=== PATIENT | male | born 1935 | race Caucasian/White ===

== ENCOUNTER 2017-02-12 15:33 | Inpatient (IN) | payer MEDICARE ==
--- NOTE | ~2017-02-12 | CN ---
Consultation Report [facility] [address] [place]. [address] NAME: ZOE CONWAY : 37 STATUS : ADM IN [facility]#: [id number] AGE: 81 ADM/REG DATE : 02/12/17 MR#: [id number] REPORT SERV DATE: 02/14/17 DICTATED BY: DATE: REPORT STATUS : Draft TRANSCRIBED BY: MODL DATE: 02/14/17 CONSULTATION DATE OF CONSULTATION: 02/14/2017 REASON FOR CONSULTATION: Back pain. HISTORY OF PRESENT ILLNESS: The patient was admitted on 02/12/2017 with chest pain and elevated troponins. We are consulted because he is having persistent sharp upper left-sided back pain. His troponins have been elevated and have remained unchanged likely due to his chronic systolic heart failure according to Dr. Waddell. After physical exam, it was found that the patient is very tender to palpation and his trapezius muscle was very tight. I believe, his pain is likely due to muscle spasms, so I started cyclobenzaprine and see if that helps. As mentioned above, the pain is constant and is radiating around the trapezius muscle to the front left chest and is sharp in nature and has been persistent in the last two days. PAST MEDICAL HISTORY: Includes coronary artery disease, borderline diabetes mellitus, chronic kidney disease stage 3, rheumatoid arthritis, systolic heart failure, ejection fraction is 20%, CVA, squamous cell carcinoma of the skin, chronic leukopenia, as well as LGL leukemia. PAST SURGICAL HISTORY: Includes CABG x2, AICD placement, multiple cardiac stents, and aortic valve replacement. FAMILY HISTORY: Mother had CAD. Father had rheumatoid arthritis. SOCIAL HISTORY: The patient denies tobacco, alcohol, illicit drug use. The patient is a retired [employer] and lives at home with his . HOME MEDICATIONS: Include aspirin 81 mg p.o. daily, atorvastatin 80 mg p.o. at hour of sleep, carvedilol 3.125 mg p.o. b.i.d., Plavix 75 mg p.o. daily, fluoxetine 10 mg p.o. at hour of sleep, folic acid 1 mg p.o. daily, furosemide 40 mg IV q.8, heparin 5000 units subcu q.8, latanoprost ophthalmic at hour of sleep, magnesium 400 mg p.o. b.i.d., multivitamin one tablet p.o. daily, pentoxifylline 400 mg p.o. b.i.d., spironolactone 25 mg p.o. daily, tamsulosin 0.4 mg p.o. daily, 400 units p.o. daily, prednisone 10 mg p.o. daily. ALLERGIES: INCLUDE MORPHINE AND CODEINE. PHYSICAL EXAMINATION: GENERAL: The patient is alert and oriented, follows commands. NEUROLOGIC: Cranial nerves 2 through 12 are grossly intact. Alert and oriented x4. CHEST: Heart tones are irregularly irregular. Systolic murmur noted, 12/16. Consultation Report [place] [id number] [facility] [place]. [address] NAME: ZOE CONWAY : 37 STATUS : ADM IN [facility]#: [id number] AGE: 81 ADM/REG DATE : 02/12/17 MR#: [id number] REPORT SERV DATE: 02/14/17 DICTATED BY: DATE: REPORT STATUS : Draft TRANSCRIBED BY: MODL DATE: 02/14/17 LUNGS: Lungs are clear throughout lung reyes. No shortness of breath was noted. The patient is on room air and O2 saturation of 95%. ABDOMEN: Soft. Bowel sounds are present. No tenderness was noted or organomegaly. EXTREMITIES: Multiple ecchymosis on his arms bilaterally. 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 LABORATORY DATA: Include sodium 139, potassium 4.0, chloride 102, CO2 25, BUN 58, creatinine 1.66, GFR 38, glucose 188, calcium 8.2, white blood cell count 3.3, hemoglobin 11.3, hematocrit 35.2, platelets 134. Last troponin 2.83 up from 2.46. BNP 1034.7. UA was negative. ASSESSMENT AND PLAN: 1. Back pain, likely muscle spasms of the left trapezius. I will start the patient on cyclobenzaprine to see if this helps. 2. Chronic kidney disease stage 3. Being managed by primary team. 3. Systolic heart failure with an ejection fraction of 20%. Again managed by the primary team. Elevated troponin. 4. Being managed by the primary team. We will follow along and manage the patient's back pain. Thank you very much for the consultation. OBIE/ELLI Heath May NP / [id number] CC: Casey Henderson D.O. Hany A. Naggar, MD
--- NOTE | ~2017-02-12 | DS ---
Discharge Summary [facility] [address] [place]. [address] NAME: ZOE CONWAY : 37 STATUS : DIS IN PAT#: [id number] AGE: 81 ADM/REG DATE : 02/12/17 MR#: [id number] REPORT SERV DATE: 02/21/17 DICTATED BY: SAE CLINE DATE: 02/20/17 REPORT STATUS : Draft TRANSCRIBED BY: ELLI DATE: 02/20/17 Data Collection from hospitalization DISCHARGE DIAGNOSES: CONSULTATIONS: Heath Mya NP. PROCEDURES PERFORMED: None. DISPOSITION: [facility]. HOSPITAL COURSE: This 81-year-old male had multiple medical problems. He had known coronary artery disease and ischemic cardiomyopathy with an LVEF in the 20% range. He and his family reported progressive worsening dyspnea and weakness over the past several weeks so that he had a hard time walking more than 15 feet. He had some increasing lower extremity edema and some left shoulder pain. He had squamous cell carcinoma on his left shoulder and was scheduled for surgery. His left shoulder pain was somewhat concerning; it was not necessarily exertional and persistent over several days. He denied any fever or chills. He denied nausea, but did report significant weakness. He had no lightheadedness or syncope. He was admitted for further evaluation and treatment. Upon admission to the hospital, he had been placed on heart failure admission orders. He was placed in a monitored bed. He was begun on bronchodilators per protocol. He had also been placed on a 2-g sodium, 1500 mL per day fluid restriction cardiac diet. He was begun on Lasix at 40 mg IV every 8 hours, heparin 5000 units subcutaneously every 8 hours, Zofran 4 to 8 mg IV every 4 hours as needed, hydrocodone 5 mg one every 4 hours as needed, melatonin 3 mg at bedtime as needed for insomnia, Colace 100 mg twice daily as needed. Following the day of admission, he was afebrile and his vital signs were stable. He had no complaints of chest pain or shortness of breath. His chest x-ray had revealed vascular congestion as well as interstitial edema and bilateral effusions. It was felt that the small elevation in the troponin could be secondary to his congestive heart failure. He was continued on diuresis with IV Lasix. On 02/14/2017, his main complaint was back pain. He had no complaints of chest pain or shortness of breath. He was afebrile and his vital signs had remained stable. He had been changed to oral Bumex. He was also seen on 02/14/2017 by Heath May in regard to his back pain, which he felt was likely muscle spasms of the left trapezius. He placed the patient on cyclobenzaprine to see if this would help. On 02/15/2017, the patient was noted to be sedated with Haldol and Geodon, and Heath May was unable to evaluate him secondary to sedation and he was to be monitored throughout the day. He was noted to become agitated and combative after Flexeril was given, and therefore, received the Geodon and Haldol as well as some Dilaudid. On 02/15/2017, at 2305 hours, Dr. Devonte Moreno had responded to code blue and ACLS protocol was initiated. He had failed to respond and a code was called, and the patient had been pronounced at . He was then released to the above home. Information collected by: Geovanna BeltreI.T. I submit the above information as my discharge summary. Discharge Summary [address] [address] NAME: ZOE CONWAY : 37 STATUS : DIS IN [facility]#: [id number] AGE: 81 ADM/REG DATE : 02/12/17 MR#: [id number] REPORT SERV DATE: 02/21/17 DICTATED BY: SAE CLINE DATE: 02/20/17 REPORT STATUS : Draft TRANSCRIBED BY: ELLI DATE: 02/20/17 RW/ELLI Sae Cline M.D. / [id number] CC: Casey Henderson D.O.
--- NOTE | ~2017-02-12 | HP ---
History And Physical [place] [address] [place]. [address] NAME: ZOE CONWAY : 37 STATUS : ADM IN [facility]#: [id number] AGE: 81 ADM/REG DATE : 02/12/17 MR#: [id number] REPORT SERV DATE: 02/13/17 DICTATED BY: JM OSPINA DATE: 02/12/17 REPORT STATUS : Draft TRANSCRIBED BY: MODL DATE: 02/12/17 DATE OF ADMISSION: 02/12/2017 CHIEF COMPLAINT: Weakness, left shoulder pain, exertional dyspnea, and ER report of elevated troponin. HISTORY OF PRESENT ILLNESS: Mr. Conway is an 81-year-old man with multiple medical problems. He has known coronary artery disease and ischemic cardiomyopathy with an LVEF in the 20% range. He and his family reports progressive worsening dyspnea and weakness over the past several weeks so that he has hard time walking more than 15 feet. He has some increasing lower extremity edema and some left shoulder pain. He has a squamous cell carcinoma on his left shoulder and was scheduled for surgery. His left shoulder pain is somewhat concerning, it is not necessarily exertional and persistent over several days. He denies fevers or chills. He denies nausea, but does report significant weakness. He has had no lightheadedness and no syncope. REVIEW OF SYSTEMS: As per the history of present illness. Ten other systems are negative. PAST MEDICAL HISTORY: 1. Coronary artery disease, previous bypass surgery, arteriogram in with severe disease of the LAD and circumflex, 10% RCA with patent LOZOYA to the LAD, patent vein graft to the D1 mild degenerative changes on the vein graft to the right. Echocardiogram with EF of 20%. 2. Diabetes. 3. Chronic kidney disease. 4. Rheumatoid arthritis. 5. Some form of chronically low white blood cell count, on chronic immunosuppression and methotrexate. FAMILY HISTORY: Noncontributory. SOCIAL HISTORY: The patient is . No tobacco reported. ALLERGIES: MORPHINE. HOME MEDICATIONS: Aspirin 81 daily, atorvastatin 80 q.h.s., Coreg 3.125 mg p.o. b.i.d., Plavix 75 daily, Prozac 10 daily, folic acid one daily, Lasix 40 p.r.n., Xalatan, losartan 25 daily, magnesium oxide, methotrexate as directed, multivitamin, nitroglycerin, fish oil, Trental, potassium 10 p.r.n. out of 10 as directed, prednisone 10 daily, spironolactone 25 daily, Flomax, vitamin E, Anusol, PreserVision. PHYSICAL EXAMINATION: VITAL SIGNS: The patient is afebrile. Temperature is 98.6, heart rate 100, blood pressure 119/60. GENERAL: The patient is an elderly, chronically ill-appearing white male, in no apparent History And Physical [address] [address] NAME: ZOE CONWAY : 37 STATUS : ADM IN [facility]#: [id number] AGE: 81 ADM/REG DATE : 02/12/17 MR#: [id number] REPORT SERV DATE: 02/13/17 DICTATED BY: JM OSPINA DATE: 02/12/17 REPORT STATUS : Draft TRANSCRIBED BY: ELLI DATE: 02/12/17 distress. HEENT: Conjunctivae are anicteric, no xanthelasma, lips without cyanosis. NECK: Supple. Jugular venous pressure is mildly elevated. LUNGS: Decreased breath sounds in the bases. CARDIOVASCULAR: Regular rate and rhythm. 2/6 systolic murmur. ABDOMEN: Soft, nontender, nondistended. EXTREMITIES: Mild lower extremity edema bilaterally. NEURO/PSYCH: Alert and oriented to person, place and time. No obvious neurologic deficits. Mood and affect normal. DATA: Electrocardiogram shows AV paced rhythm. LABORATORY DATA: Significant for creatinine of 1.38 with a BUN of 52. BNP level is 1271. Troponin 2.46. Hematocrit 36. IMPRESSION: 1. Acute on chronic systolic congestive heart failure. Generalized weakness of unclear etiology. 1. Chronic immunosuppression. 2. Probable demand ischemia. Mildly elevated troponin. Doubt back pain has anything to do with angina. 3. Chronic kidney disease. RECOMMENDATIONS: Mr. Conway presents with a number of generalized symptoms, mostly weakness with some back pain. His troponin is elevated. I see no acute changes on his EKG. I think we just follow some serial enzymes and treat him medically. WO/MODL Jm Ospina M.D., Ph.D, F.A.C.C. / [id number] CC: Casey Henderson D.O.
[~2017-02-12 15:33] MED LIST: ACET500CAP PO; ANUSOL-HC2.5 % PR; ASAB PO; ASABAYER PO; ASAEC PO; AVAP150 PO; BUM2 PO; COREG25 PO; COREG3 PO; COZ25 PO; COZAAR100 MG PO; FISH-EPA1000 MG PO; FLOMAX4 PO; FLONASE NAS; FOLIC ACID PO; FOLIC PO; FORTAMET500 MG PO; GLUCPH PO; HALF81 PO; HCTZ25B PO; K500 PO; KDUR20 PO; KLOR-CON 1010 MEQ PO; L20 PO; L40 PO; LEVAQUIN750 MG PO; LIPITOR40 PO; LIPITOR80 MG PO; LOFIB160 PO; LOFIBRA160 MG PO; MAGOX4 PO; MTX2.5 PO; MULTIVIT/MIN PO; MVI PO; NIASPAN500 PO; NITROSTAT0.4 MG SL; NORCO1 TA1 PO; NORV5 PO; OMNICEF300 PO; P10 PO; P20 PO; P5 PO; PLAQ200B PO; PLAVIX PO; PRESERVISION A1 EACH PO; PRESERVISION PO; PROVHFA INH; PROZ10 PO; SPIRO25 PO; TRENTAL400 PO; TREXALL7.5 MG PO; TRILIPIX135 MG PO; VITE PO; VOLTAREN1 % TOP; XALAT OPH; ZETIA PO; [UNRECOGNIZED DRUG - OTHER]; [UNRECOGNIZED DRUG - REMARK] IV
[2017-02-12 15:51] LABS: BASOPHILS 0.7 %; BASOPHILS ABSOLUTE 0.03 10/3/uL (0.0-0.16); EOSINOPHILS ABSOLUTE 0.04 10/3/uL (0.0-0.53); IMMATURE GRANULOCYTES 0.5 %; IMMATURE GRANULOCYTES ABSOLUTE 0.02 10/3/uL (0.0-0.11); LYMPHOCYTES 8.3 %; LYMPHOCYTES ABSOLUTE 0.34 10/3/uL (0.67-4.30); MEAN CORPUS HGB CONC 32.8 g/dL (32.0-36.0); MEAN CORPUSCULAR HEMOGLOB 28.4 pg (26.0-34.0); MEAN CORPUSCULAR VOLUME 86.7 fL (80-100); MEAN PLATELET VOLUME 9.4 fL (9.2-13.0); MONOCYTES ABSOLUTE 0.29 10/3/uL (0.21-1.20); NEUTROPHILS 82.5 %; RBC DISTRIBUTION WIDTH 18.1 % (12.0-16.0); RED CELL COUNT 4.15 10/6/uL (4.7-6.1)
[2017-02-12 15:52] LABS: ER CBC TAT 0 Hrs 05 Mins; HEMOGLOBIN 11.8 g/dL (13.6-17.8); MANUAL DIFF NO %; PLATELET COUNT 155 10/3/uL (150-400); WHITE BLOOD CELLS 4.1 10/3/uL (4.5-10.5)
[2017-02-12 16:01] LABS: INTERNATIONAL NORMAL RATI 1.2 UNITS (-); PARTIAL THROMBO TIME 29.2 SEC (22.5-37.2); PROTIME (NOT ORD) 14.9 SEC (12.0-14.5)
[2017-02-12 16:08] LABS: BUN (BLOOD UREA NITROGEN) 52 MG/DL (6-23); CALCIUM, SERUM 8.9 MG/DL (8.5-10.4); CHLORIDE, SERUM 104 MMOL/L (96-112); CO2 (CARBON DIOXIDE) 26 MMOL/L (24-34); CREATININE 1.38 MG/DL (0.70-1.30); GFR AFRICAN AMERICAN 56 ML/MIN (>=60); GFR NON AFRICAN AMERICAN 48 ML/MIN (>=60); GLUCOSE, SERUM 158 MG/DL (60-99); POTASSIUM, SERUM 4.6 MMOL/L (3.5-5.3); SODIUM, SERUM 139 MMOL/L (135-148)
[2017-02-12 16:17] LABS: CHEST PAIN PROFILE TAT 0 Hrs 30 Mins; TROPONIN I 2.46 NG/ML (<0.05)
[2017-02-12] MEDS ORDERED: TREXALL7.5 MG PO (17:47)
[2017-02-12] MEDS ORDERED: TRENTAL400 PO (17:47)
[2017-02-12] MEDS ORDERED: MULTIVIT/MIN PO (17:47)
[2017-02-12] MEDS ORDERED: KLOR-CON 1010 MEQ PO (17:48)
[2017-02-12] MEDS ORDERED: P5 PO (17:50)
[2017-02-12] MEDS ORDERED: SPIRO25 PO (17:50)
[2017-02-12] MEDS ORDERED: FLOMAX4 PO (17:51)
[2017-02-12] MEDS ORDERED: NITROQUICK0.4 MG PO (17:51)
[2017-02-12] MEDS ORDERED: VITE PO (17:51)
[2017-02-12] MEDS ORDERED: PRESERVISION A1 EACH PO (17:52)
[2017-02-12] MEDS ORDERED: NORCO1 TA1 PO (17:52)
[2017-02-12] MEDS ORDERED: FOLIC PO (17:52)
[2017-02-12] MEDS ORDERED: [UNRECOGNIZED DRUG - OTHER] IM (17:52)
[2017-02-12] MEDS ORDERED: ANUSOL HC PR (17:53)
[2017-02-12] MEDS ORDERED: XALAT OPH (17:54)
[2017-02-12] MEDS ORDERED: COZ25 PO (17:54)
[2017-02-12] MEDS ORDERED: MAGOX4 PO (17:55)
[2017-02-12] MEDS ORDERED: L40 PO (17:56)
[2017-02-12] MEDS ORDERED: LIPITOR80 MG PO (17:57)
[2017-02-12] MEDS ORDERED: ASAB PO (17:57)
[2017-02-12] MEDS ORDERED: COREG3 PO (17:58)
[2017-02-12] MEDS ORDERED: PLAVIX PO (17:58)
[2017-02-12] MEDS ORDERED: FISH OIL1200 MG PO (17:58)
[2017-02-12] MEDS ORDERED: PROZ10 PO (17:59)
[2017-02-13 07:34] LABS: ASCORBIC ACID (UR NOT ORDER) NEG (NEG); BILIRUBIN, URINE NEGATIVE (NEG); KETONE, URINE NEGATIVE (NEG); LEUKOCYTE ESTERASE(NOT OR NEG (NEG); WBC (NOT ORDERED) (RFLEX) 1 (0-5)
[2017-02-13 09:36] LABS: BASOPHILS 1.2 %; BASOPHILS ABSOLUTE 0.04 10/3/uL (0.0-0.16); EOSINOPHILS 2.7 %; EOSINOPHILS ABSOLUTE 0.09 10/3/uL (0.0-0.53); HEMATOCRIT 35.2 % (40.0-51.0); HEMOGLOBIN 11.3 g/dL (13.6-17.8); IMMATURE GRANULOCYTES 0.3 %; IMMATURE GRANULOCYTES ABSOLUTE 0.01 10/3/uL (0.0-0.11); LYMPHOCYTES 20.1 %; LYMPHOCYTES ABSOLUTE 0.66 10/3/uL (0.67-4.30); MEAN CORPUS HGB CONC 32.1 g/dL (32.0-36.0); MEAN CORPUSCULAR VOLUME 87.3 fL (80-100); MEAN PLATELET VOLUME 10.5 fL (9.2-13.0); MONOCYTES 13.7 %; MONOCYTES ABSOLUTE 0.45 10/3/uL (0.21-1.20); NEUTROPHILS ABSOLUTE 2.04 10/3/uL (2.02-8.40); PLATELET COUNT 134 10/3/uL (150-400); RBC DISTRIBUTION WIDTH 18.4 % (12.0-16.0); RED CELL COUNT 4.03 10/6/uL (4.7-6.1); WHITE BLOOD CELLS 3.3 10/3/uL (4.5-10.5)
[2017-02-13 09:38] LABS: MANUAL DIFF NO %
[2017-02-13 09:48] LABS: A/G RATIO 0.9 (0.7-1.9); BUN (BLOOD UREA NITROGEN) 51 MG/DL (6-23); CALCIUM, SERUM 8.4 MG/DL (8.5-10.4); CHLORIDE, SERUM 102 MMOL/L (96-112); CO2 (CARBON DIOXIDE) 26 MMOL/L (24-34); CPK 49 U/L (0-200); CREATININE 1.39 MG/DL (0.70-1.30); GFR AFRICAN AMERICAN 55 ML/MIN (>=60); GFR NON AFRICAN AMERICAN 48 ML/MIN (>=60); GLOBULIN 3.5 G/DL (2.5-4.1); GLUCOSE, SERUM 145 MG/DL (60-99); POTASSIUM, SERUM 3.9 MMOL/L (3.5-5.3); SGPT(ALT) 22 U/L (5-65); SODIUM, SERUM 139 MMOL/L (135-148); TOTAL BILIRUBIN 0.7 MG/DL (0-1.2); TOTAL PROTEIN 6.5 G/DL (6.0-8.5)
[2017-02-13 09:49] LABS: ALKALINE PHOSPHATASE 70 U/L (45-117); CK-MB 2.1 NG/ML; SGOT(AST) 21 U/L (5-40)
[2017-02-13 10:00] LABS: INTERNATIONAL NORMAL RATI 1.1 UNITS (-); PROTIME (NOT ORD) 13.6 SEC (12.0-14.5)
[2017-02-13 10:01] LABS: PARTIAL THROMBO TIME 23.5 SEC (22.5-37.2)
[2017-02-13 15:17] LABS: CPK 38 U/L (0-200)
[2017-02-14 05:39] LABS: CALCIUM, SERUM 8.2 MG/DL (8.5-10.4); CHLORIDE, SERUM 102 MMOL/L (96-112); CO2 (CARBON DIOXIDE) 25 MMOL/L (24-34); CREATININE 1.66 MG/DL (0.70-1.30); GFR AFRICAN AMERICAN 44 ML/MIN (>=60); GFR NON AFRICAN AMERICAN 38 ML/MIN (>=60); SODIUM, SERUM 139 MMOL/L (135-148)
[2017-02-14 05:48] LABS: BUN (BLOOD UREA NITROGEN) 58 MG/DL (6-23); GLUCOSE, SERUM 188 MG/DL (60-99)
[2017-02-15 07:00] LABS: CALCIUM, SERUM 8.7 MG/DL (8.5-10.4); CHLORIDE, SERUM 102 MMOL/L (96-112); CREATININE 1.94 MG/DL (0.70-1.30); GFR AFRICAN AMERICAN 37 ML/MIN (>=60); GFR NON AFRICAN AMERICAN 32 ML/MIN (>=60); GLUCOSE, SERUM 178 MG/DL (60-99); SODIUM, SERUM 137 MMOL/L (135-148)
[2017-02-15 07:02] LABS: BUN (BLOOD UREA NITROGEN) 65 MG/DL (6-23); CO2 (CARBON DIOXIDE) 20 MMOL/L (24-34); POTASSIUM, SERUM 5.5 MMOL/L (3.5-5.3)
== END 2017-02-15 23:02 | disposition expired | DRG 291 ==
LOC: CORLMH 15:33 → SSU2 17:40 → 7NO 20:00
PROVIDERS: Emergency Medicine; Internal Medicine Cardiovascular Disease
PROC: 0BH17EZ Insertion of Endotracheal Airway into Trachea, Via Natural or Artificial Opening (ICD-10-PCS; principal; 2017-02-15)
DX: I13.0 Hypertensive heart and chronic kidney disease with heart failure and stage 1 through stage 4 chronic kidney disease, or unspecified chronic kidney disease (principal); I50.23 Acute on chronic systolic (congestive) heart failure; I47.2 Ventricular tachycardia; E11.22 Type 2 diabetes mellitus with diabetic chronic kidney disease; I24.8 Other forms of acute ischemic heart disease; I25.5 Ischemic cardiomyopathy; Z79.82 Long term (current) use of aspirin; Z79.02 Long term (current) use of antithrombotics/antiplatelets; Z95.1 Presence of aortocoronary bypass graft; M06.9 Rheumatoid arthritis, unspecified; Z79.52 Long term (current) use of systemic steroids; I25.10 Atherosclerotic heart disease of native coronary artery without angina pectoris; C76.42 Malignant neoplasm of left upper limb; N18.3 Chronic kidney disease, stage 3 (moderate); Z95.810 Presence of automatic (implantable) cardiac defibrillator; I46.9 Cardiac arrest, cause unspecified; R45.1 Restlessness and agitation; T48.1X5A Adverse effect of skeletal muscle relaxants [neuromuscular blocking agents], initial encounter; Z95.2 Presence of prosthetic heart valve
CPT/HCPCS: 31500; 71010; 71020; 80048; 80053; 81001; 82550; 82553; 83735; 83880; 84443; 84484; 85025; 85610; 85730; 92950; 93005; 96374; 99291; A9270-GY; J0583; J1170; J1630; J2250; J2405; J2930; J3010; J3486